=== PATIENT | female | born 1970 | race Two or more races ===

== ENCOUNTER 2023-05-06 23:54 | Emergency (ER) | payer OTHER ==
[~2023-05-06] VITALS: Ht 160 cm; Wt 68.0 kg
[2023-05-07] MEDS ORDERED: PREMARIN0.45 MG (00:11)
[2023-05-07] MEDS ORDERED: SINGULAIR10 MG (00:11)
[2023-05-07] MEDS ORDERED: PREVACID30 MG (00:12)
[2023-05-07] MEDS ORDERED: ONDANSETRON ODT4 MG PO (05:40)
[2023-05-07] MEDS ORDERED: PEPCID40 MG PO (05:40)
== END 2023-05-07 05:49 ==
LOC: ER 23:54
DX: E86.0 Dehydration (principal); R11.10 Vomiting, unspecified